=== PATIENT | female | born 1950 | race Hispanic/Latino ===

== ENCOUNTER → 2017-04-16 | Outpatient (CLI) | payer MEDICARE ==
[~2017-04-16] MED LIST: ALEN70TA47 PO; ATOR40TA69 PO; EZET10 PO; GABA-529 PO; LISI10TA7 PO; LORA-705 PO; OMEP40CA37 PO; [UNRECOGNIZED DRUG - OTHER] PO
== END | disposition home or self-care (01) ==
LOC: RAH 12:53
PROVIDERS: ATTEND Family Medicine
DX: Z12.31 Encounter for screening mammogram for malignant neoplasm of breast (principal)
CPT/HCPCS: 77067

== ENCOUNTER 2018-03-30 15:00 | Emergency (ER) | payer MEDICARE ==
[~2018-03-30 15:00] MED LIST changes: +ALEN70TA10 PO; -ALEN70TA47 PO
[2018-03-30] MEDS ORDERED: KETOROLAC TROMETHAMINE 30MG/ML ONE (16:04)
[2018-03-30] MEDS ORDERED: DIAZEPAM 5 MG TABLET ONE (16:04)
[2018-03-30] MEDS ORDERED: LIDOCAINE 5% TOPICAL PATCH TP ONE (16:24)
== END 2018-03-30 17:33 | disposition home or self-care (01) ==
LOC: EDH 15:00
DX: S39.012A Strain of muscle, fascia and tendon of lower back, initial encounter (principal); I10 Essential (primary) hypertension; E78.5 Hyperlipidemia, unspecified; E07.9 Disorder of thyroid, unspecified; Z90.710 Acquired absence of both cervix and uterus; Z90.89 Acquired absence of other organs; Z98.890 Other specified postprocedural states; X50.9XXA Other and unspecified overexertion or strenuous movements or postures, initial encounter; Y93.89 Activity, other specified; Y92.89 Other specified places as the place of occurrence of the external cause; Y99.8 Other external cause status
CPT/HCPCS: 96372; 99283; J1885

== ENCOUNTER → 2018-04-17 | Outpatient (CLI) | payer MEDICARE | END | disposition home or self-care (01) | LOC: RAH 10:25 | PROVIDERS: ATTEND Family Medicine | DX: Z12.31 Encounter for screening mammogram for malignant neoplasm of breast (principal) | CPT/HCPCS: 77067 ==

== ENCOUNTER → 2019-04-18 | Outpatient (CLI) | payer MEDICARE ==
[~2019-04-18] MED LIST changes: -EZET10 PO; +EZET10TA13 PO; +OMEP40CA13 PO; -OMEP40CA37 PO
== END | disposition home or self-care (01) ==
LOC: RAH 07:24
PROVIDERS: ATTEND Internal Medicine
DX: Z12.31 Encounter for screening mammogram for malignant neoplasm of breast (principal)
CPT/HCPCS: 77067

== ENCOUNTER → 2019-07-15 | Outpatient (CLI) | payer MEDICARE ==
[~2019-07-15] MED LIST changes: -ALEN70TA10 PO; +ALEN70TA69 PO
== END | disposition home or self-care (01) ==
LOC: RAH 10:10
PROVIDERS: ATTEND Internal Medicine
DX: E04.1 Nontoxic single thyroid nodule (principal); E03.9 Hypothyroidism, unspecified
CPT/HCPCS: 76536

== ENCOUNTER → 2020-05-05 | Outpatient (CLI) | payer MEDICARE ==
[~2020-05-05] MED LIST changes: -ALEN70TA69 PO; +ALEN70TA80 PO; +LISI10TA24 PO; -LISI10TA7 PO; +LORA-699 PO; -LORA-705 PO
== END | disposition home or self-care (01) ==
LOC: RAH 10:28
PROVIDERS: ATTEND Family Medicine
DX: Z12.31 Encounter for screening mammogram for malignant neoplasm of breast (principal)
CPT/HCPCS: 77067

== ENCOUNTER 2021-03-21 08:00 | Observation (INO) | payer MEDICARE ==
[~2021-03-21] VITALS: Ht 165.1 cm; Wt 92.6 kg
[~2021-03-21 08:00] MED LIST changes: -ALEN70TA80 PO; -EZET10TA13 PO; -GABA-529 PO; -LORA-699 PO; -OMEP40CA13 PO; -[UNRECOGNIZED DRUG - OTHER] PO
[2021-03-21 10:14] LABS: APPEARANCE,URINE Clear (CLEAR); BILIRUBIN,URINE Negative (NEGATIVE); COLOR,URINE Yellow (YELLOW); GLUCOSE, URINE (UA) Negative (NEGATIVE); KETONES,URINE Negative (NEGATIVE); LEUKOCYTE ESTERASE ,URINE Negative (NEGATIVE); NITRATE,URINE Negative (NEGATIVE); OCCULT BLOOD,URINE Negative (NEGATIVE); PH,URINE 6.5 (5.0-8.0); PROTEIN,URINE Negative (NEGATIVE); UROBILINOGEN,URINE 0.2 mg/dL (0.2-1.0)
[2021-03-22 10:51] VITALS: BP 135/72
[2021-03-22] MEDS ORDERED: DULO60CA64 PO (14:05)
[2021-03-22] MEDS ORDERED: GABA300C PO (14:05)
[2021-03-22] MEDS ORDERED: LEVO25CA4 PO (14:05)
[2021-03-22] MEDS ORDERED: PANT40TA54 PO (14:05)
[2021-03-22] MEDS ORDERED: FISH12002 PO (14:05)
[2021-03-22] MEDS ORDERED: FLUT15.845 NS (14:05)
[2021-03-22] MEDS ORDERED: iron PO (14:05)
[2021-03-22] MEDS ORDERED: ZOLP10TA2 PO (14:05)
[2021-03-22] MEDS ORDERED: MULT-1330 PO (14:05)
[2021-03-23] VITALS (28 sets, daily range): BP systolic 115–169; BP diastolic 52–96
[2021-03-23] MEDS: CEFAZOLIN SODIUM 2 GM VIAL IV SCH ×2 (05:00→10:39)
[2021-03-23] MEDS ORDERED: LACTATED RINGERS 1000ML 1,000 ML IV ONE (07:32)
[2021-03-23] MEDS ORDERED: CEFAZOLIN SODIUM 1 GM VIAL ONE ×2 (07:32→09:44)
[2021-03-23] MEDS ORDERED: TRANEXAMIC ACID 1000MG/10ML ONE ×2 (09:44→13:12)
[2021-03-23] MEDS ORDERED: SUCCINYLCHOLINE CHLORIDE 20 MG/ML 10 ML VIAL ONE (10:01)
[2021-03-23] MEDS ORDERED: GLYCOPYRROLATE 1 MG/5 ML SYRINGE ONE (10:01)
[2021-03-23] MEDS ORDERED: ONDANSETRON 4MG INJ ONE (10:01)
[2021-03-23] MEDS ORDERED: DEXAMETHASONE SOD PHOSPHATE 10MG/ML 1ML VIAL ONE (10:01)
[2021-03-23] MEDS ORDERED: PROPOFOL 10 MG/ML 20ML VIAL IV ONE (10:01)
[2021-03-23] MEDS ORDERED: LIDOCAINE PF 100MG/5ML (2%) SYRINGE 5ML ONE (10:01)
[2021-03-23] MEDS ORDERED: NEOSTIGMINE 5MG/5ML SYR IV ONE (10:02)
[2021-03-23] MEDS ORDERED: FENTANYL CITRATE PF 50 MCG/1 ML 2ML VIAL ONE (10:02)
[2021-03-23] MEDS ORDERED: MIDAZOLAM HCL 1 MG/ML 2ML VIAL ONE (10:02)
[2021-03-23] MEDS ORDERED: ROCURONIUM 10MG/1ML SYR 10 MG/ML ML ONE (10:02)
[2021-03-23] MEDS ORDERED: ROPIVACAINE 0.5% 5MG/ML 30ML IJ ONE (10:19)
[2021-03-23] MEDS ORDERED: ONDANSETRON 4MG INJ IVP PRN (13:00)
[2021-03-23] MEDS ORDERED: TRAMADOL HCL 50 MG TABLET PO PRN (13:00)
[2021-03-23] MEDS ORDERED: LIDOCAINE HCL-MPF 1% 2ML VIAL IV PRN (13:00)
[2021-03-23] MEDS ORDERED: POTASSIUM CHLORIDE 20MEQ/100ML 100 ML IV PRN (13:00)
[2021-03-23] MEDS ORDERED: KCL 20 MEQ ERTAB PO PRN (13:00)
[2021-03-23] MEDS: 0.9%NACL 1000ML 1,000 ML IV SCH ×2 (13:00→23:00)
[2021-03-23] MEDS ORDERED: FERROUS FUMARATE 324 MG TABLET PO PRN (13:00)
[2021-03-23] MEDS ORDERED: OXYCODONE HCL 5 MG TAB PO PRN (13:00)
[2021-03-23] MEDS: ACETAMINOPHEN 500 MG TABLET PO SCH ×2 (13:00→20:26)
[2021-03-23] MEDS ORDERED: TEMAZEPAM 15 MG CAPSULE PO PRN (13:00)
[2021-03-23] MEDS ORDERED: POTASSIUM CHLORIDE 10% ELIXIR 20 MEQ/15 ML UDCUP PO PRN (13:00)
[2021-03-23] MEDS ORDERED: KETOROLAC 15MG/ML VIAL (15MG/ML) IV PRN (13:00)
[2021-03-23] MEDS ORDERED: CALCIUM CARB 500MG PO PRN (13:00)
[2021-03-23] MEDS ORDERED: DiphenhydrAMINE HCL 50 MG/ML VIAL IVP PRN (13:00)
[2021-03-23] MEDS ORDERED: MEPERIDINE-PF 25 MG/ML SYG ONE ×2 (13:12→13:24)
[2021-03-23] MEDS ORDERED: FLUTICASONE PROPIONATE 50MCG/SPRAY 16 GM BOTTLE NS PRN (17:30)
[2021-03-23] MEDS: CEFAZOLIN SODIUM 1 GM VIAL IVP SCH (17:51)
[2021-03-23] MEDS: OXYCODONE HCL 5 MG TAB PO PRN (17:52)
[2021-03-23] MEDS: CELECOXIB 200 MG CAP PO SCH (20:26)
[2021-03-23] MEDS: FAMOTIDINE 20MG TAB PO SCH (20:26)
[2021-03-23] MEDS: ASPIRIN 81 MG EC TAB PO SCH (20:26)
[2021-03-23] MEDS: DULOXETINE HCL 30 MG CAP PO SCH (21:00)
[2021-03-24] MEDS: ZOLPIDEM TARTRATE 5 MG TAB PO SCH ×2 (00:17→22:38)
[2021-03-24] MEDS: CEFAZOLIN SODIUM 1 GM VIAL IVP SCH (01:38)
[2021-03-24 05:19] VITALS: BP 135/80
[2021-03-24 05:59] LABS: HEMATOCRIT 34.2 % (36-48); MEAN CORPUSCULAR HEMOGLOBIN 28.6 pg (27.0-33.0); MEAN CORPUSCULAR HGB CONC 33.3 g/dL (32.0-36.0); MEAN CORPUSCULAR VOLUME 85.7 fL (79-99); RED BLOOD CELL COUNT(AUTO) 3.99 MIL/uL (4.00-5.50); RED CELL DISTRIBUTION WIDTH 14.5 % (11.0-15.5); WHITE BLOOD COUNT (AUTO) 8.9 K/uL (4.8-10.8)
[2021-03-24] MEDS: LEVOTHYROXINE 25 MCG TABLET PO SCH (06:01)
[2021-03-24] MEDS: ACETAMINOPHEN 500 MG TABLET PO SCH ×3 (06:06→21:00)
[2021-03-24 06:22] LABS: POTASSIUM 3.9 mmol/L (3.5-5.1)
[2021-03-24 08:08] VITALS: BP 127/72
[2021-03-24] MEDS: PANTOPRAZOLE 40 MG TAB DR PO SCH (08:41)
[2021-03-24] MEDS: POLYETHYLENE GLYCOL 3350 17 GM POWD.PACK PO SCH (08:41)
[2021-03-24] MEDS: CELECOXIB 200 MG CAP PO SCH ×2 (08:41→19:46)
[2021-03-24] MEDS: LISINOPRIL 10 MG TABLET PO SCH (08:41)
[2021-03-24] MEDS: FAMOTIDINE 20MG TAB PO SCH ×2 (08:41→19:46)
[2021-03-24] MEDS: GABAPENTIN 300 MG CAPSULE PO SCH (08:41)
[2021-03-24] MEDS: ATORVASTATIN 40 MG TABLET PO SCH (08:41)
[2021-03-24] MEDS: ASPIRIN 81 MG EC TAB PO SCH ×2 (08:41→19:46)
[2021-03-24] MEDS: 0.9%NACL 1000ML 1,000 ML IV SCH (09:00)
[2021-03-24] MEDS ORDERED: LACTULOSE 20 GM/30 ML UDCUP PO PRN (09:00)
[2021-03-24 10:49] VITALS: BP 128/75
[2021-03-24 16:35] VITALS: BP 141/76
[2021-03-24] MEDS: DULOXETINE HCL 30 MG CAP PO SCH (19:46)
[2021-03-24] MEDS: OXYCODONE HCL 5 MG TAB PO PRN (19:47)
[2021-03-24 20:30] VITALS: BP 146/75
[2021-03-24 23:20] VITALS: BP 126/78
[2021-03-25 05:17] VITALS: BP 109/64
[2021-03-25] MEDS: LEVOTHYROXINE 25 MCG TABLET PO SCH (05:25)
[2021-03-25] MEDS: ACETAMINOPHEN 500 MG TABLET PO SCH ×2 (05:26→13:04)
[2021-03-25 07:30] VITALS: BP 139/78
[2021-03-25] MEDS: PANTOPRAZOLE 40 MG TAB DR PO SCH (08:02)
[2021-03-25] MEDS: FAMOTIDINE 20MG TAB PO SCH (08:02)
[2021-03-25] MEDS: ASPIRIN 81 MG EC TAB PO SCH (08:02)
[2021-03-25] MEDS: CELECOXIB 200 MG CAP PO SCH (08:03)
[2021-03-25] MEDS: ATORVASTATIN 40 MG TABLET PO SCH (08:03)
[2021-03-25] MEDS: GABAPENTIN 300 MG CAPSULE PO SCH (08:03)
[2021-03-25] MEDS: OXYCODONE HCL 5 MG TAB PO PRN (08:03)
[2021-03-25] MEDS: LISINOPRIL 10 MG TABLET PO SCH (08:04)
[2021-03-25] MEDS: POLYETHYLENE GLYCOL 3350 17 GM POWD.PACK PO SCH (08:04)
[2021-03-25 11:00] VITALS: BP 127/70
[2021-03-25] MEDS ORDERED: HYDR-4060 PO (13:44)
[2021-03-25] MEDS ORDERED: AEC81 PO (13:44)
[2021-03-25 16:00] VITALS: BP 113/72
[2021-03-26] MEDS ORDERED: BISACODYL 10 MG SUPP.RECT RC PRN (13:00)
== END 2021-03-25 16:45 ==
LOC: EDSTATUS 08:00 → DAHIP 03-23 06:21 → 3DH 03-23 14:31
PROVIDERS: ADMIT Orthopaedic Surgery; ATTEND Orthopaedic Surgery
DX: M17.12 Unilateral primary osteoarthritis, left knee (principal); I12.9 Hypertensive chronic kidney disease with stage 1 through stage 4 chronic kidney disease, or unspecified chronic kidney disease; N18.9 Chronic kidney disease, unspecified; E03.9 Hypothyroidism, unspecified; Z20.822 Contact with and (suspected) exposure to COVID-19; E78.5 Hyperlipidemia, unspecified; R79.89 Other specified abnormal findings of blood chemistry; Z90.710 Acquired absence of both cervix and uterus; Z96.651 Presence of right artificial knee joint; Z79.01 Long term (current) use of anticoagulants; Z79.899 Other long term (current) drug therapy
CPT/HCPCS: 27447; 36415; 80048; 81003; 85027; 87088; 87635; 87641; 88305; 88311; 96374; 96375 ×2; 96376; 97039 ×4; 97116 ×4; 97161; 97530 ×5; A4215; A4221; A4222; A4223; A4600; A4649 ×5; A4663; A9272; C1776; G0378 ×48; J0330; J0690 ×4; J1100; J1885; J2001; J2175 ×2; J2250; J2405 ×2; J2704; J2710; J2795; J3010; J3490 ×3; J7120 ×2

== ENCOUNTER → 2021-05-19 | Outpatient (CLI) | payer MEDICARE ==
[~2021-05-19] MED LIST changes: +AEC81 PO; +DULO60CA64 PO; +FISH12002 PO; +FLUT15.845 NS; +GABA300C PO; +HYDR-4060 PO; +LEVO25CA4 PO; +MULT-1330 PO; +PANT40TA54 PO; +ZOLP10TA2 PO; +iron PO
== END | disposition home or self-care (01) ==
LOC: RAH 09:23
PROVIDERS: ATTEND Family Medicine
DX: Z12.31 Encounter for screening mammogram for malignant neoplasm of breast (principal)
CPT/HCPCS: 77067

== ENCOUNTER → 2022-05-29 | Outpatient (CLI) | payer MEDICARE | END | disposition home or self-care (01) | LOC: RAH 14:05 | PROVIDERS: ATTEND Family Medicine | DX: Z12.31 Encounter for screening mammogram for malignant neoplasm of breast (principal) | CPT/HCPCS: 77067 ==